=== PATIENT | male | born 1980 | race Two or more races ===

== ENCOUNTER 2017-06-20 18:06 | Emergency (ER) | payer MEDICAID ==
--- NOTE | 2017-06-20 18:20 | EDPHY ---
HPI/HX/ROS/PE/MDM Narrative: CHIEF COMPLAINT: Shortness of breath, cough HISTORY OF PRESENT ILLNESS: The patient is a 37 y/o male smoker complaining of shortness of breath, cough, sore throat, and congestion onset 8 days ago. He has been coughing up mucus. Around 4 days ago he developed a subjective low-grade fever. Mucinex provided mild relief of his symptoms. He currently has a tight chest upon breathing. Denies history of hypertension, diabetes, cardiac disease, kidney disease, or liver disease. No fever, ear pain, chills, chest pain, palpitations, vomiting, diarrhea, urinary complaints, headache, lightheadedness. REVIEW OF SYSTEMS: Aside from elements discussed in the HPI, a comprehensive 10-point review of systems was reviewed and is negative. PAST MEDICAL HISTORY: Narcotic abuse recovery SOCIAL HISTORY: Daughter at bedside, smoker, lives in [place] VITAL SIGNS: see nurse's notes. GENERAL: Well-developed, well-nourished, in no acute distress. HEENT: Atraumatic Eyes: PERRL, EOMI, no conjunctival injection. Ears: Clear bilaterally. Nose: No discharge. Mouth: moist mucous membranes. Pharynx: no erythema, no exudates, no swelling, no abscess. Uvula is midline. NECK: Supple, no adenopathy, no meningismus, no tenderness. Negative Kernig's and Brudzinski's. LUNGS: Wet cough, coarse breath sounds and wheezes bilaterally (right worse than left). No rhonchi or rales. CARDIAC: Regular rate and rhythm, no rubs, murmurs or gallops. ABDOMEN: Soft, nontender, bowel sounds normal. BACK: No CVA tenderness. EXTREMITIES: Normal, no edema, FROM. NEURO: Alert and oriented, grossly nonfocal. SKIN: Warm and dry, no rash. PSYCHIATRIC: Normal mentation, no agitation. Portions of this note were transcribed by a medical assisting instructor. I personally performed a history, physical exam, medical decision making, and confirmed accuracy of information the transcribed note. ED Course: The patient is a 37 y/o male smoker complaining of shortness of breath, cough, sore throat, and congestion onset 8 days ago. On exam he has a wet cough, coarse breath sounds and wheezes bilaterally (right worse than left). Chest x- ray ordered. Albuterol treatment, DuoNeb treatment, 875mg PO Amoxicillin, and 60mg PO prednisone administered. 1850: I reviewed patient's chest x-ray which reveals bronchitis. 1901: Reassessed patient, he is feeling better after medications. I have discussed imaging findings. I have prescribed him an Albuterol inhaler and Augmentin, and a prednisone burst. Return precautions provided; patient is comfortable with this plan. 1916: Spoke with Dr. Edwards, radiologist, regarding patient's chest x-ray. There is a possible right upper lobe infiltrate. Patient will be discharged as mentioned above with albuterol, Augmentin, and prednisone. MDM: Differential diagnosis for the patient's shortness of breath was considered including but not limited to pulmonary infectious processes, asthma exacerbation , bronchitis, bronchospasm, pulmonary emboli, pulmonary edema, congestive heart failure, and cardiac causes. - Data Points Imaging Results: Imaging Impressions Chest X-Ray 06/20/17 18:34 Impression: 1. Moderate perihilar bronchitis. 2. Asymmetric opacity in the peripheral lateral right upper lobe, concerning for a mild infiltrate. Clinical correlation and follow-up chest radiography in 4 -6 weeks is suggested to assure resolution. Findings and recommendations were discussed with Marzena Dean MD at 19:13, on 06/20/2017. Imaging: Discussed imaging studies w/ call center director Radiologist, I viewed and interpreted images myself Medications Given: Discontinued Medications Albuterol (Proventil Neb) 3 ml IH EDNOW ONE Stop: 06/20/17 18:35 Last Admin: 06/20/17 18:53 Dose: 3 ml Albuterol Sulfate (Proventil Inh Prepack) 1 mdi TAKEHOME EDNOW ONE Stop: 06/20/17 18:35 Last Admin: 06/20/17 19:26 Dose: 1 mdi Albuterol/Ipratropium (Duoneb) 3 ml IH EDNOW ONE Stop: 06/20/17 18:35 Last Admin: 06/20/17 18:43 Dose: 3 ml Amoxicillin/Clavulanate Potassium (Augmentin 875mg) 875 mg PO EDNOW ONE PRN Reason: Protocol Stop: 06/20/17 18:58 Last Admin: 06/20/17 19:26 Dose: 875 mg Prednisone (Prednisone) 60 mg PO EDNOW ONE Stop: 06/20/17 18:35 Last Admin: 06/20/17 18:42 Dose: 60 mg General Time Seen by Provider: 06/20/17 18:18 Initial Vital Signs: Initial Vital Signs Temperature (C) 37.7 C 06/20/17 18:16 Heart Rate 91 06/20/17 18:16 Respiratory Rate 18 06/20/17 18:16 Blood Pressure 156/83 H 06/20/17 18:16 O2 Sat (%) 92 06/20/17 18:16 O2 Delivery Mode Room Air Allergies/Adverse Reactions: No Known Allergies Allergy (Unverified 06/20/17 18:16) Home Medications: Medication Instructions Recorded Amoxicillin/Clavulanate Pot 875 mg PO BID #14 tab 06/20/17 [Augmentin 875 MG TAB (*)] Methadone HCl 06/20/17 predniSONE 40 mg PO DAILY #6 tab 06/20/17 Departure - Departure Disposition: Home, Routine, Self-Care Clinical Impression: Shortness of breath, Bronchitis, Bronchospasm Pneumonia Qualifiers: Pneumonia type: due to unspecified organism Laterality: right Lung location: upper lobe of lung Qualified Code(s): J18.1 - Lobar pneumonia, unspecified organism Condition: Good Instructions: Albuterol (By breathing), Acute Bronchitis (ED), How to Use a Nebulizer (ED), Bronchospasm (ED), Pneumonia (ED), Shortness of Breath (ED) Additional Instructions: You have bronchitis and you may have an early pneumonia. Use the albuterol inhaler as prescribed. Take antibiotics as directed without fail. Take the prednisone as directed. Get plenty of rest and drink plenty of fluid. Return to the Emergency Department for fever, chest pain, shortness of breath, increasing pain or other worsening of condition. Referrals: [facility],. [Clinic] - As per Instructions Stand Alone Forms: Work Excuse Prescriptions: Amoxicillin/Clavulanate Pot [Augmentin 875 MG TAB (*)] 875 mg PO BID #14 tab predniSONE 40 mg PO DAILY #6 tab Report Scribed for: Marzena Dean Report Scribed by: Faviola Teran Date of Report: 06/20/17 Time of Report: 18:20
[2017-06-20] MEDS ORDERED: ALBUTEROL INH PREPACK MDI TAKEHOME ONE (18:34)
[2017-06-20] MEDS ORDERED: ALBUTEROL 3 ML DEYVIAL IH ONE (18:34)
[2017-06-20] MEDS ORDERED: IPRATROPIUM/ALBUTEROL 3 ML DEYVIAL IH ONE (18:34)
[2017-06-20] MEDS ORDERED: predniSONE 20 MG TAB PO ONE (18:34)
[2017-06-20] MEDS ORDERED: AMOXICILLIN/CLAVULANATE POT 875/125 MG TAB PO ONE (18:57)
[2017-06-20 19:41] VITALS: BP 123/78
== END 2017-06-20 19:40 | disposition home or self-care (01) ==
LOC: CED 18:06
DX: J20.9 Acute bronchitis, unspecified (principal); J18.1 Lobar pneumonia, unspecified organism; F17.200 Nicotine dependence, unspecified, uncomplicated
CPT/HCPCS: 71046-PO; J7512; J7613